=== PATIENT | female | born 1990 | race Caucasian/White ===

== ENCOUNTER 2016-11-21 08:20 | Emergency (ER) | payer OTHER ==
[~2016-11-21 08:20] MED LIST: HYDR-971 PO; METO50TA4 PO; ONDA4TAB10 SL; ONDA4TAB7 PO
[2016-11-21] MEDS: IV NORMAL SALINE 1,000ML 1,000 ML IV ONE (09:07)
--- NOTE | 2016-11-21 09:18 | PHYS DOC ---
Past History Past Medical History: No Pertinent History Past Surgical History: Cholecystectomy, Other Smoking: Non-smoker Alcohol Use: Rarely Drug Use: None Adult General Chief Complaint Chief Complaint: HEADACHE HPI HPI Patient is a 26 year old F who presents with with a headache for the past 3 days. Patient states that 3 days ago she had a sore throat and then shortly after that developed what she is calling a migraine headache. Patient states she has no history of migraine headaches. Patient has history of elevated heart rate and called her family doctor concerning that this is a migraine headache and he prescribed her verapamil however she has not taken the medication yet. Patient denies any fevers. Patient denies any nausea/vomiting/diarrhea. Patient states the headache is behind the right eye and goes to the back. Patient denies any other neuro symptoms. Patient denies any chest pain or shortness of breath. Patient states her sore throat is better today. Review of Systems Review of Systems GEN: Denies fevers, chills, sweats HEENT: Denies blurred vision, sore throat CV: Denies chest pain RESP: Denies shortness of air, cough GI: Denies n/v/d NEURO: Headache MSK: Denies weakness, joint pain/swelling Current Medications Current Medications Current Medications Medications (Trade) Dose Ordered Sig/Ekn Start Time Stop Time Status Last Admin Dose Admin Diphenhydramine HCl (Benadryl) 50 mg 1X ONCE 11/21/16 09:15 11/21/16 09:16 Magnesium Sulfate 50 ml @ 25 mls/hr 1X ONCE 11/21/16 09:15 11/21/16 11:14 Metoclopramide HCl (Reglan) 10 mg 1X ONCE 11/21/16 09:15 11/21/16 09:16 Sodium Chloride 1,000 ml @ 1,000 mls/hr 1X ONCE 11/21/16 09:15 11/21/16 10:14 11/21/16 09:07 1,000 MLS/HR Allergies Allergies Allergies Coded Allergies Type Severity Reaction Last Updated Verified morphine Adverse Reaction Intermediate 11/03/14 Yes Physical Exam Physical Exam GEN.: No apparent distress. Alert and oriented. HEENT: Head is normocephalic, atraumatic NECK: Supple. LUNGS: CTAB. HEART: RRR, S1, S2 present. Peripheral pulses intact ABDOMEN: Soft, nontender. Positive bowel sounds. EXTREMITIES: Without any cyanosis. NEUROLOGIC: Normal speech, normal tone, cranial nerves II through XII grossly intact without any focal neurological deficits PSYCHIATRIC: Normal affect, normal mood. SKIN: No ulcerations Current Patient Data Vital Signs Vital Signs Date Time Temp Pulse Resp B/P (MAP) Pulse Ox O2 Delivery O2 Flow Rate FiO2 11/21/16 08:20 97.7 112 16 98 Room Air EKG EKG [] Radiology/Procedures Radiology/Procedures CT of the head without contrast, 11/21/2016: History: Headache The ventricles are within normal limits in size. There is no shift of the midline structures. There is no evidence of acute intracranial hemorrhage or mass effect. IMPRESSION: No acute intracranial abnormality is detected.[] Course & Med Decision Making Course & Med Decision Making Pertinent Labs and Imaging studies reviewed. (See chart for details) She was seen and evaluated upon arrival to emergency room, CT scan head without contrast, magnesium 2 g, Reglan 10 mg, 1 L normal saline, 50 mg of Benadryl were ordered 1008: Patient was updated on CT results and reevaluated in which she states her headache is gone and feels much better. MDM: After reviewing the chart, CC/HPI/PMH, physical exam, [radiological results], I do not believe the patient has her cranial process warranting further workup and /or admission at this time. I have a low suspicion for acute meningitis. On reevaluation the patient's symptoms have improved and the patient feels better and wants to go home. Strongly encourage the patient to follow-up with her PCP for further workup for her headache. Patient is stable for discharge. Additional verbal discharge instructions were provided to the patient and that if symptoms get worse or any new symptoms arise that are worrisome to the patient she is to return to the emergency room immediately [] Dragon Disclaimer Dragon Disclaimer This chart was dictated in whole or in part using Voice Recognition software in a busy, high-work load, and often noisy Emergency Department environment. It may contain unintended and wholly unrecognized errors or omissions. Departure Departure: Impression: Primary Impression: Headache Disposition: HOME, SELF-CARE Condition: IMPROVED Referrals: REGINALD RODGERS DO (PCP) Patient Instructions: General Headache Without Cause Additional Instructions: Please follow up with her family doctor next one to 2 days Problem Qualifiers Primary Impression: Headache Headache type: unspecified Headache chronicity pattern: unspecified pattern Intractability: not intractable Qualified Codes: R51 - Headache JAMIE CALHOUN DO Nov 21, 2016 09:18
[2016-11-21] MEDS: METOCLOPRAMIDE HCL 10 MG/2 ML VIAL. IV ONE (09:27)
[2016-11-21] MEDS: diphenhydrAMINE 50 MG/ML VIAL IVP ONE (09:27)
[2016-11-21] MEDS: MAGNESIUM SULFATE 2GM 50 ML IV ONE (09:30)
--- NOTE | 2016-11-21 09:39 | RAD ---
CT of the head without contrast, 11/21/2016: History: Headache The ventricles are within normal limits in size. There is no shift of the midline structures. There is no evidence of acute intracranial hemorrhage or mass effect. IMPRESSION: No acute intracranial abnormality is detected. PQRS Compliance Statement: One or more of the following individualized dose reduction techniques were utilized for this examination: 1. Automated exposure control 2. Adjustment of the mA and/or kV according to patient size 3. Use of iterative reconstruction technique
[2016-11-21] MEDS: KETOROLAC 30 MG/ML VIAL. IV ONE (10:14)
[2016-11-21 10:34] VITALS: BP 139/78
== END 2016-11-21 10:34 | disposition home or self-care (01) ==
LOC: ER 08:20
DX: R51 Headache (principal); J02.9 Acute pharyngitis, unspecified; Z88.5 Allergy status to narcotic agent
CPT/HCPCS: 70450; 96365; 96375; 99284; J1200; J1885; J2765; J3475; J7030